=== PATIENT | male | born 1930 | race African-American/Black ===

== ENCOUNTER 2020-05-10 17:24 | Inpatient (IN) | payer MEDICARE, OTHER ==
--- NOTE | 2020-05-10 17:43 | RAD ---
Chest one view HISTORY: Chest pain. COMPARISON: 10/08/2015. FINDINGS: Cardiac silhouette is magnified by projection. Pulmonary vasculature is unremarkable. Mediastinum is midline with aortic calcification. No lobar consolidation or evidence of pneumothorax. Degenerative changes of the shoulders. IMPRESSION : Atherosclerosis. No active cardiopulmonary abnormalities are otherwise demonstrated.
[2020-05-10 17:45] LABS: #Lymphocytes 0.7 thou/uL (1.20-3.40); #Monocytes 0.1 thou/uL (0.11-0.59); #Neutrophils 9.7 thou/uL (1.40-6.50); %Eosinophils 0.4 % (0.0-10.0); %Lymphocytes 6.2 % (21.0-51.0); %Monocytes 0.8 % (0.0-10.0); %Neutrophils 92.7 % (42.0-75.0); Hemoglobin 12.3 g/dL (14.0-18.0); Mean Corpuscular HGB CONC 33.7 g/dL (32.0-36.0); Mean Corpuscular Hemoglobin 32.6 pg (27.0-31.0); Mean Corpuscular Volume 96.9 fL (78.0-98.0); Mean Platelet Volume 7.3 fL (7.4-10.4); Platelet Count 325 thou/uL (130-400); Red Blood Cell (RBC) Count 3.78 mill/uL (4.70-6.10); White Blood Cell (WBC) Count 10.5 thou/uL (4.8-10.8)
[2020-05-10 18:26] LABS: CKMB 1.9 ng/mL (0-6.6)
[2020-05-10 18:28] LABS: ALT (SGPT) 13 U/L (8-55); AST (SGOT) 13 U/L (5-34); Albumin 4.2 g/dL (3.4-4.8); Alkaline Phosphatase 76 U/L (40-110); Anion Gap 19 mmol/L (10-20); BUN (Urea Nitrogen) 16 mg/dL (8.4-25.7); Bilirubin, Total 0.3 mg/dL (0.2-1.2); Calc. Creatinine Clearance 0 mL/min (70-130); Calcium 9.2 mg/dL (7.8-10.44); Carbon Dioxide 18 mmol/L (23-31); Chloride 101 mmol/L (98-107); Estimated GFR-MDRD 67; Globulin 2.9 g/dL (2.4-3.5); Glucose 397 mg/dL (83-110); Potassium 4.8 mmol/L (3.5-5.1); Protein, Total 7.1 g/dL (5.8-8.1); Sodium 133 mmol/L (136-145)
[2020-05-10 18:30] LABS: Lactic Acid 4.9 mmol/L (0.5-2.2)
--- NOTE | 2020-05-10 18:36 | CT ---
CT head noncontrast HISTORY: Syncope. COMPARISON: 10/05/2015. FINDINGS: There is no evidence of acute intracranial hemorrhage or infarct. Mild diffuse cortical atr ophy and chronic ischemic small vessel disease. There is no mass effect or shift of midline structures. Minimal physiologic calcification at the left basal ganglia. IMPRESSION : No acute intracranial abnormalities are demonstrated.
[2020-05-10 18:58] LABS: Bilirubin Negative (Negative); Blood, Urine Negative (Negative); Clarity Clear (Clear); Glucose, Urine (Dipstick) Greater than 1000 mg/dL (Negative); Ketone, Urine 10 mg/dL (Negative); Leukocyte Negative Leu/uL (Negative); Nitrite Negative (Negative); Protein, Urine (Dipstick) 20 mg/dL (Neg-Trace); Specific Gravity, Urine 1.022 (1.002-1.036); Urobilinogen Normal mg/dL (Less than 2)
[2020-05-10] MEDS ORDERED: cefTRIAXone\\ROCEPHIN 2 GM VIAL ONE (19:02)
[2020-05-10 21:05] LABS: Troponin I 0.111 ng/mL (< 0.028)
--- NOTE | 2020-05-10 21:17 | PDOC.FPRHP ---
- History of Present Illness Chief Complaint: Found down History of Present Illness: Mr Shukla is a 89yo male with pmh of GERD, prostate cancer, bladder cancer, DMII, HLD and hearing impairment who presented after he was found slumped over by his lawnmower. [place] thinks he had finished mowing but couldn't get off the mower. He thinks he may have passed out rather than fall trying to get up. Denies prodromal symptoms. His found him slumped over. Reports he started mowing at 1430. He remembers waking up in the ambulance when he was almost to [place]. Had been feeling fine prior to event. Reports he hardly drank any water today. EMS reports patient was lethargic and confused initially with axillary temp of 102, ASA given in route. Mental status improved with IVF. Patient reports remembering mowing his lawn but nothing after. Unsure how long he was in the heat. This has never happened before. Feels like he is back to his normal self now. Denies hx of cardiac cath. Reports he has had an echo at [facility]. Also reports he has cope to his upper right thigh from being down on the concrete. ED Course: 3L NS. 1g Ceftriaxone - Allergies/Adverse Reactions Allergies Allergy/AdvReac Type Severity Reaction Status Date / Time Penicillins Allergy Verified 05/10/20 23:21 - Home Medications Medication Instructions Recorded Confirmed Type Doxycycline Hyclate [Vibramycin] 100 mg PO BID #0 tab 10/09/15 Rx Gabapentin [Neurontin] 200 mg PO BID 10/09/15 10/09/15 History HYDROcodone Bit/APAP 10/325 [[place]] 1 tab PO Q6HR PRN 10/09/15 10/09/15 History Lisinopril/Hydrochlorothiazide 1 tablet PO DAILY 10/09/15 10/09/15 History [Lisinopril-Hctz 20-12.5 mg Tab] Omeprazole 20 mg PO DAILY 10/09/15 10/09/15 History Simvastatin 40 mg PO DAILY 10/09/15 10/09/15 History Timolol [Betimol 0.5% Ophth 1 drop EA EYE BID 10/09/15 10/09/15 History Solution] glipiZIDE 10 mg PO BID 10/09/15 10/09/15 History guaiFENesin ER [Mucinex] 600 mg PO Q8H PRN #0 tab 10/09/15 Rx predniSONE 40 mg PO QAM-WM #0 tab 10/09/15 Rx - History PMHx: GERD, prostate cancer s/p prostectomy, bladder cancer, DMII, HLD, neuropathy PSHx: Right knee surgery, right hip replacement, prostatectomy, bilateral cataract surgery. FHx: Son with brain surgery Social: Denies alcohol, drug use. Former tobacco user, quit >10yrs ago. Lives at home with his who is in her 90's. - Review of Systems General: reports: fever/chills (102) Eyes: denies: eye pain, vision changes ENT: denies: nasal congestion, rhinorrhea Respiratory: denies: cough, congestion, shortness of breath Cardiovascular: denies: chest pain, edema Gastrointestinal: denies: nausea, vomiting, diarrhea, constipation, abdominal pain Genitourinary: denies: dysuria, polyuria Skin: reports: lesions (cope from being on the concrete). denies: rashes Musculoskeletal: reports: arthritis/arthralgias (knee). denies: swelling Neurological: reports: numbness (chronic from neuropathy). denies: weakness - Vital signs BP: 158/98 HR: 115 RR: 23 Tmax: 102 Pox: 98% on RA Wt: 100kg - Physical Exam Constitutional: NAD, awake, alert and oriented, well developed HEENT: normocephalic and atraumatic, conjunctiva clear, no scleral icterus, oropharynx clear, other (hearing impairment) Neck: supple, trachea midline Heart: RRR, no murmurs/rubs/gallops Lungs: CTAB, no respiratory distress, no wheezing Abdomen: soft, non-tender, bowel sounds present Musculoskeletal: normal structure, normal tone Neurological: no focal deficit Skin: no rash/lesions, good turgor, capillary refill <2 seconds Heme/Lymphatic: no unusual bruising or bleeding Psychiatric: normal mood and affect, good judgment and insight, intact recent and remote memory FMR H&P: Results - Labs Result Diagrams: 05/10/20 17:35 05/10/20 17:34 Lab results: WBC 10.5 thou/uL (4.8-10.8) 05/10/20 17:35 Hgb 12.3 g/dL (14.0-18.0) L 05/10/20 17:35 Hct 36.7 % (42.0-52.0) L 05/10/20 17:35 MCV 96.9 fL (78.0-98.0) 05/10/20 17:35 Plt Count 325 thou/uL (130-400) 05/10/20 17:35 Neutrophils % 92.7 % (42.0-75.0) H 05/10/20 17:35 Sodium 133 mmol/L (136-145) L 05/10/20 17:34 Potassium 4.8 mmol/L (3.5-5.1) 05/10/20 17:34 Chloride 101 mmol/L (98-107) 05/10/20 17:34 Carbon Dioxide 18 mmol/L (23-31) L 05/10/20 17:34 BUN 16 mg/dL (8.4-25.7) 05/10/20 17:34 Creatinine 1.24 mg/dL (0.7-1.3) 05/10/20 17:34 Glucose 397 mg/dL (83-110) H 05/10/20 17:34 Lactic Acid 4.9 mmol/L (0.5-2.2) H* 05/10/20 17:32 Calcium 9.2 mg/dL (7.8-10.44) 05/10/20 17:34 Total Bilirubin 0.3 mg/dL (0.2-1.2) 05/10/20 17:34 AST 13 U/L (5-34) 05/10/20 17:34 ALT 13 U/L (8-55) 05/10/20 17:34 Alkaline Phosphatase 76 U/L (40-110) 05/10/20 17:34 Creatine Kinase 83 U/L (30-200) 05/10/20 17:41 CK-MB (CK-2) 1.9 ng/mL (0-6.6) 05/10/20 17:34 Serum Total Protein 7.1 g/dL (5.8-8.1) 05/10/20 17:34 Albumin 4.2 g/dL (3.4-4.8) 05/10/20 17:34 Urine Ketones 10 mg/dL (Negative) A 05/10/20 18:25 Urine Blood Negative (Negative) 05/10/20 18:25 Urine Nitrite Negative (Negative) 05/10/20 18:25 Ur Leukocyte Esterase Negative Rangel/uL (Negative) 05/10/20 18:25 - EKG Interpretation EKG: RBBB unchanged from EKG on 2015 - Radiology Interpretation CT scan - head Status: report reviewed by me Additional comment: No acute findings Chest x-ray Status: image reviewed by me, report reviewed by me Additional comment: No acute findings FMR H&P: A/P - Plan Encephalopathy and syncope 2/2 heat exhaustion, now resolved - Core temp max 102.9. Will monitor on tele and obtain echo to r/o cardiac cause of pt being found down. Trop 0.05-> 0.111, continue to trend. LA 4.9, ordered repeat. s/p 2L NS. Pt tolerating PO, encourage PO hydration. Admit to tele for cardiac monitoring. SIRS criteria without source - Febrile and tachycardic likely 2/2 heat exhaustion, received 1g Ceftriaxone in ED for empiric coverage as well at 2L NS. UA with no signs of infection. CXR no acute findings. Now afebrile and normal mentation. Very low suspicion for infection. Will not continue Abx. Elevated troponin - Continue to trend. EKG with no acute findings. RBBB present on prior EKG. Prostate cancer s/p prostectomy, bladder cancer DMII w/ neuropathy - SSI, ACHS accuchecks. Continue home meds HLD, GERD - Continue home meds Code Status: DNR DVT ppx: SCDs PCP: [facility]- [facility] FMR H&P: Upper Level - Plan Date/Time: 05/10/202115 I, [], have evaluated this patient and agree with findings/plan as outlined by advisory intern resident. Pertinent changes/additions are listed here. Addendum - Attending - Attending Attestation Date/Time: 05/10/20 2344 I personally evaluated the patient and discussed the management with Dr. Rivera and Dr Carballo. I agree with the History, Examination, Assessment and Plan documented above with any addition or exceptions noted below.
[2020-05-10 23:16] VITALS: BMI 30.6
[2020-05-10] MEDS ORDERED: Dextrose 5% in Water 1,000 ML IV PRN (23:46)
[2020-05-10] MEDS ORDERED: Acetaminophen 325 MG TAB PO PRN (23:46)
[2020-05-10] MEDS ORDERED: Ondansetron ODT 4 MG TAB PO PRN (23:46)
[2020-05-10] MEDS ORDERED: Dextrose 50% Abboject 50 ML SYRINGE SLOW IVP PRN (23:46)
[2020-05-10 23:56] LABS: Lactic Acid 2.7 mmol/L (0.5-2.2)
[2020-05-11 00:05] LABS: Troponin I 0.104 ng/mL (< 0.028)
[2020-05-11] MEDS: Lactated Ringer's 1,000 ML IV SCH ×2 (01:15→10:21)
[2020-05-11] MEDS ORDERED: Acetaminophen/Codeine 30-300mg Tablet PO PRN (05:46)
[2020-05-11] MEDS: HumaLOG 300 UNITS/3 ML VIAL SC PRN ×3 (06:18→17:04)
--- NOTE | 2020-05-11 07:25 | PDOC.FM ---
- Subjective Subjective: Doing well overnight. Complains of cope over his legs. Otherwise he feels well. Wants to go home today if he can. Eating breakfast w/o difficulty. - Objective MAR Reviewed: Yes Vital Signs & Weight: Vital Signs (12 hours) Temp Pulse Resp BP Pulse Ox 05/11/20 03:35 98.6 F 114 H 20 182/86 H 96 05/10/20 22:30 98.2 F 108 H 20 180/84 H 96 Weight Weight 99.564 kg I&O: 05/10/20 05/11/20 05/12/20 06:59 06:59 06:59 Intake Total 679 Output Total 950 Balance -271 Result Diagrams: 05/11/20 08:40 05/11/20 08:40 Phys Exam - Physical Examination Constitutional: NAD Respiratory: no wheezing, clear to auscultation bilateral Cardiovascular: RRR, no significant murmur Gastrointestinal: soft, no distention, positive bowel sounds Musculoskeletal: edema present (trace ) Psychiatric: normal affect, A&O x 3 Deviation from normal: left inner thigh and right outer thigh vesicular cope, small burn L arm -: other chronic lesion on arm 5 mm in diameter, poss SK Dx/Plan (1) Heat exhaustion Code(s): T67.5XXA - HEAT EXHAUSTION, UNSPECIFIED, INITIAL ENCOUNTER Status: Acute - Plan Plan: 89 yo M admitted for heat exhaustion and being found down: Encephalopathy and syncope 2/2 heat exhaustion, resolved - Echo today - wean IVF to oral PO hydration SIRS criteria without source - likely 2/2 heat exhaustion, - received 1g Ceftriaxone in ED. D/C abx. Elevated troponin, stable - EKG RBBB, old DMII w/ neuropathy - SSI, ACHS accuchecks. - A1C pending today, glucose running in 300-400 Prostate cancer s/p prostectomy Hx Bladder cancer HLD, GERD - Continue home meds Code Status: DNR DVT ppx: SCDs PCP: [facility] Dispo: pending Echo. If normal, likely d/c today home. Addendum - Attending - Attending Attestation Date/Time: 05/11/20 3552 I personally evaluated the patient and discussed the management with the team. I agree with the History, Examination, Assessment and Plan documented above with any addition or exceptions noted below. Patient without complaint this morning besides pain over his cope. Denies cp/ sob/n/v/f/c. Await TTE and wound care. Home pending their evaluation as I believe he had heat related illness. Restart home meds and monitor BP.
[2020-05-11] MEDS: Gabapentin 400 MG CAP PO SCH ×2 (08:54→16:41)
[2020-05-11] MEDS: Ferrous Sulfate 325 MG TAB PO SCH ×2 (08:55→16:41)
[2020-05-11] MEDS: glipiZIDE 5 MG TAB PO SCH ×2 (08:55→16:41)
[2020-05-11] MEDS: metFORMIN 500 MG TAB PO SCH ×2 (08:57→16:41)
[2020-05-11] MEDS ORDERED: DULoxetine 30 MG CAP PO SCH (09:00)
[2020-05-11] MEDS ORDERED: Atorvastatin Calcium 20 MG TAB PO SCH (09:00)
[2020-05-11] MEDS ORDERED: Metoprolol Tartrate 25 MG TAB PO SCH (09:00)
[2020-05-11] MEDS ORDERED: Timolol 0.5% Ophth Soln 5 ml Bottle EA EYE SCH (09:00)
[2020-05-11] MEDS ORDERED: Aspirin 81 mg Enteric Coated Tablet PO SCH (09:00)
[2020-05-11] MEDS ORDERED: Megestrol Acetate 40 MG TAB PO SCH (09:00)
[2020-05-11] MEDS ORDERED: Cholecalciferol 1,000 UNITS (25 MCG) TAB PO SCH (09:00)
[2020-05-11 09:18] LABS: #Lymphocytes 0.9 thou/uL (1.20-3.40); #Monocytes 0.5 thou/uL (0.11-0.59); #Neutrophils 11.7 thou/uL (1.40-6.50); %Eosinophils 0.2 % (0.0-10.0); %Lymphocytes 7.2 % (21.0-51.0); %Monocytes 3.8 % (0.0-10.0); %Neutrophils 88.8 % (42.0-75.0); Hemoglobin 12.3 g/dL (14.0-18.0); Mean Corpuscular HGB CONC 34.5 g/dL (32.0-36.0); Mean Corpuscular Hemoglobin 33.8 pg (27.0-31.0); Mean Corpuscular Volume 97.9 fL (78.0-98.0); Mean Platelet Volume 7.5 fL (7.4-10.4); Platelet Count 299 thou/uL (130-400); Red Blood Cell (RBC) Count 3.65 mill/uL (4.70-6.10); White Blood Cell (WBC) Count 13.2 thou/uL (4.8-10.8)
[2020-05-11 09:21] LABS: Hemoglobin A1c 7.1 % (4.0-6.0)
[2020-05-11 09:36] LABS: Anion Gap 12 mmol/L (10-20); BUN (Urea Nitrogen) 16 mg/dL (8.4-25.7); Calc. Creatinine Clearance 73 mL/min (70-130); Calcium 9.1 mg/dL (7.8-10.44); Carbon Dioxide 27 mmol/L (23-31); Chloride 99 mmol/L (98-107); Estimated GFR-MDRD 88; Glucose 349 mg/dL (83-110); Potassium 3.9 mmol/L (3.5-5.1); Sodium 134 mmol/L (136-145)
[2020-05-11 13:54] LABS: SARS-CoV-2 MS2 Positive; SARS-CoV-2 N Gene Negative; SARS-CoV-2 S Gene Negative; SARS-CoV-2 by NAA Not Detected (NotDetected); SARS-CoV-2 orf1ab Negative
[2020-05-11 15:40] VITALS: TEMP 97.6
[2020-05-11 16:01] VITALS: BP 171/80
[2020-05-12] MEDS ORDERED: Lisinopril/Hydrochlorothiazide 20 mg/12.5 mg Tablet PO SCH (09:00)
--- NOTE | 2020-05-13 02:12 | DIS ---
DATE OF ADMISSION: 05/10/2020 DATE OF DISCHARGE: 05/11/2020 ADMITTING ATTENDING PHYSICIAN: Christian Li MD. DISCHARGE ATTENDING: Dr. Bennett. RESIDENT: Cesilia Jaramillo MD PROCEDURES: 1. Chest x-ray. Impression: Atherosclerosis. No active cardiopulmonary abnormalities. 2. CT of the brain without contrast. Impression: No acute intracranial abnormalities. 3. Echocardiogram. Ejection fraction of 60% to 65%. The E/A flow reversal noted, suggestive of diastolic dysfunction. Mild dilation of the left atrium. PRIMARY DIAGNOSES: 1. Acute encephalopathy secondary to heat exhaustion, resolved. 2. Systemic inflammatory response syndrome criteria, likely secondary to heat exhaustion. 3. Elevated troponin, stable. 4. Second degree skin cope of right and left thigh and right forearm. SECONDARY DIAGNOSES: 1. History of prostate cancer, status post prostatectomy. 2. History of bladder cancer. 3. Type 2 diabetes with neuropathy. 4. Hyperlipidemia. 5. Gastroesophageal reflux disease. DISCHARGE MEDICATIONS: 1. Acetaminophen with codeine 300/30 mg tablet p.o. q.6 hours p.r.n. 2. Aspirin 81 mg p.o. daily. 3. Bisacodyl 10 mg suppository rectally q.2 days. 4. Vitamin D3 of 2000 units p.o. daily. 5. Doxycycline 100 mg p.o. b.i.d. 6. Duloxetine 30 mg p.o. b.i.d. 7. Ferrous sulfate 325 mg p.o. t.i.d. 8. Gabapentin 400 mg p.o. t.i.d. 9. Glipizide 5 mg p.o. t.i.d. 10. Mucinex 600 mg p.o. q.8 hours p.r.n. 11. Bland 10/325 mg p.o. q.6 hours p.r.n. 12. Lisinopril-hydrochlorothiazide 20/12.5 mg tablet p.o. daily. 13. Megestrol acetate 40 mg p.o. daily. 14. Metformin 500 mg p.o. b.i.d. with meals. 15. Metoprolol 12.5 mg p.o. b.i.d. 16. Omeprazole 20 mg p.o. daily. 17. Prednisone 40 mg p.o. every morning with meals. 18. Simvastatin 40 mg p.o. daily. 19. Timolol one drop each eye b.i.d. DISCONTINUED MEDICATIONS: None. HISTORY OF PRESENT ILLNESS AND HOSPITAL COURSE: Mr. Edvin Shukla is a pleasant 89-year-old male who presented to the emergency room after his found him on the ground in the hot sun, passed out by his riding lawnmower. The patient was mowing his lawn this afternoon and says he could not get off the flask pusher. He passed out and denies prodromal or presyncopal symptoms. The patient was transported to the emergency room via EMS. He was noted to be lethargic and confused with an axillary temperature of 102.0 degrees Fahrenheit. He was given aspirin and started on IV fluids. Upon arrival to the emergency room, the patient was noted to have blistering cope on his medial right thigh and lateral left thigh as well as on his left elbow and forearm. He was passed out on the concrete and likely obtained these cope while lying on the ground. In the emergency room, he was given 3 L of normal saline and 1 g of ceftriaxone for presumed infection due to his temperature. Blood cultures and urine cultures were collected. The patient's initial troponin was 0.050. This was trended and results were 0.111 and then 0.104. The patient's lactic acid was 4.9 on admission and down trended to 2.7. The patient's hemoglobin A1c was 7.1. His [id number] glucoses were in the high 300s, likely reactive secondary to his illness. The patient had a mild leukocytosis at 13.2, his hemoglobin was 12.3 and hematocrit 35.7, platelets 299. His urine showed glucosuria greater than 1000 and urine ketones of 10. His urine was negative for blood, nitrites and leukocyte esterase. His rapid COVID test was negative. On the day after admission, the patient was eating and drinking well. He denied any urinary symptoms. Wound care saw him for his cope and treated them. Echocardiogram was performed with results as above. The patient was then discharged home in stable condition. After discharge, the patient's urine culture resulted in Granulicatella adiacens in greater than 100,000 colony-forming units. The patient was asymptomatic with regards to urinary tract infection, and this organism seems to be commensal in oral oscar and sometimes the urinary tract. We will have him follow up with his PCP if he should develop any symptoms. DISCHARGE INSTRUCTIONS: Location: Home. Activity: As tolerated. Encourage adequate oral hydration and recommend only mowing the lawn in the cool morning hours or later in the evening. Diet: Heart healthy and diabetic diet. Follow up with primary care provider, Dr. Espino within 7 days. Job ID: [id number] MTDD
--- NOTE | 2020-05-14 04:23 | PQF ---
CLINICAL DOCUMENTATION CLARIFICATION FORM: Dear : Iván Bennett Date / Time: 05/14/20 Please exercise your independent, professional judgment in responding to the clarification form. Clinical indicators are provided on the bottom of this form for your review Please check appropriate box(es): Specificity of Encephalopathy: [ ] Metabolic [ ] Toxic [ ] Unspecified [x ] Other (please specify) heat stroke [ ] Other diagnosis [ ] Unable to determine Physician Signature: Date/Time: For continuity of documentation, please document condition throughout progress notes and discharge summary. Thank You. To be completed by CDI/Coding staff for physician review: Present Clinical Indicators - Signs / Symptoms / Labs Results and Location in Medical Record [X] Sodium 133, Lactic acid 4.9, Glucose 349, POC Glucose 374; 356 Laboratory [X] BP 133/69, Pulse 129, Resp 20, Temp 102.0 Vital signs 05/10 [X] EMS reports patient was lethargic and confused initially H&P p1 05/10 Dr Roche [X] Encephalopathy and syncope 2/2 heat exhaustion H&P p4 05/10 Dr Roche [X] Febrile and tachycardic likely 2/2 heat exhaustation H&P p4 05/10 Dr Roche Present Risk Factors Results and Location in Medical Record [X] 89 year-old Male H&P p1 05/10 Dr Roche [X] Hx of prostate and bladder cancer H&P p1 05/10 Dr Roche [X] DM H&P p1 05/10 Dr Roche Present Treatments Results and Location in Medical Record [X] IV Lactated Ringer 1L NOV 26 [X] Glucotrol 5 mg oral NOV 26 [X] Insulin 5 units sq NOV 26 [X] CT Brain Imaging 05/10 Dr Lr [X] Encourage PO hydration H&P p4 05/10 Dr Roche CDS/Steaming Machine Operator Signature: Radha Mejia Phone #: ext [phone] Date/Time: 05/14/20 This is a permanent part of the Medical Record [facility]
--- NOTE | 2020-05-14 04:25 | PQF ---
CLINICAL DOCUMENTATION CLARIFICATION FORM: Dear : Iván Bennett Date / Time: 05/14/20 7775 Please exercise your independent, professional judgment in responding to the clarification form. Clinical indicators are provided on the bottom of this form for your review Please check appropriate box(es): SIRS due to Non-infectious process: [ x] With Encephalopathy [ ] Without organ dysfunction [ ] Other diagnosis [ ] Unable to determine Physician Signature: Date/Time: For continuity of documentation, please document condition throughout progress notes and discharge summary. Thank You. To be completed by CDI/Coding staff for physician review: Present Clinical Indicators - Signs / Symptoms / Labs Results and Location in Medical Record [X] WBC 10.5; 13.2Sodium 133, Lactic acid 4.9, Glucose 349, POC Glucose 374; 356 Laboratory 05/10 [X] BP 133/69, Pulse 129, Resp 20, Temp 102.0 Vital signs 05/10 [X] EMS reports patient was lethargic and confused initially H&P p1 05/10 Dr Roche [X] Encephalopathy and syncope 2/2 heat exhaustion H&P p4 05/10 Dr Roche SIRS Criteria H&P p4 05/10 Dr Roche [X] gFebrile and tachycardic likely 2/2 heat exhaustation H&P p4 05/10 Dr Roche Present Risk Factors Results and Location in Medical Record [X] 89 year-old Male H&P p1 05/10 Dr Roche [X] Hx of prostate and bladder cancer H&P p1 05/10 Dr Roche [X] DM H&P p1 05/10 Dr Roche Present Treatments Results and Location in Medical Record [X] IV Lactated Ringer 1L NOV 26 [X] Glucotrol 5 mg oral NOV 26 [X] Insulin 5 units sq NOV 26 [X] CT Brain Imaging 05/10 Dr Lr [X] Encourage PO hydration H&P p4 05/10 Dr Roche [X] Sodium 133, Lactic acid 4.9, Glucose 349, POC Glucose 374; 356 Laboratory [X] BP 133/69, Pulse 129, Resp 20, Temp 102.0 Vital signs 05/10 [X] EMS reports patient was lethargic and confused initially H&P p1 05/10 Dr Roche [X] Encephalopathy and syncope 2/2 heat exhaustion H&P p4 05/10 Dr Roche CDS/Settlement Worker Signature: Radha Vasquezmasoud Phone #: ext [phone] Date/Time: 05/14/20 7410 This is a permanent part of the Medical Record [facility]
== END 2020-05-11 18:43 | disposition home or self-care (01) | DRG 922 ==
LOC: ERS 17:24 → 2NO 19:22
PROVIDERS: ADMIT Family Medicine; ATTEND Family Medicine
DX: T67.01XA Heatstroke and sunstroke, initial encounter (principal); R65.11 Systemic inflammatory response syndrome (SIRS) of non-infectious origin with acute organ dysfunction; G93.41 Metabolic encephalopathy; Z66 Do not resuscitate; Z20.828 Contact with and (suspected) exposure to other viral communicable diseases; T24.212A Burn of second degree of left thigh, initial encounter; T24.211A Burn of second degree of right thigh, initial encounter; T22.211A Burn of second degree of right forearm, initial encounter; E11.40 Type 2 diabetes mellitus with diabetic neuropathy, unspecified; E78.5 Hyperlipidemia, unspecified; K21.9 Gastro-esophageal reflux disease without esophagitis; I45.10 Unspecified right bundle-branch block; R79.89 Other specified abnormal findings of blood chemistry; X30.XXXA Exposure to excessive natural heat, initial encounter; Y92.71 Barn as the place of occurrence of the external cause; Z85.46 Personal history of malignant neoplasm of prostate; Z88.0 Allergy status to penicillin; Z79.899 Other long term (current) drug therapy; Z79.52 Long term (current) use of systemic steroids; Z79.84 Long term (current) use of oral hypoglycemic drugs; Z85.51 Personal history of malignant neoplasm of bladder
CPT/HCPCS: 36415; 36416; 70450; 71045; 80048; 80053; 81003; 82550; 82553; 83036; 83605; 84484; 85025; 87040; 87086; 87635; 93005; 93306; 94760; 96361; 96365; J0696; S0179; U0003